=== PATIENT | male | born 1970 | race Hispanic/Latino ===

== ENCOUNTER 2019-12-21 14:58 | Emergency (ER) | payer SELFPAY ==
[2019-12-21 15:10] VITALS: BP 135/88
--- NOTE | 2019-12-21 16:10 | Emergency Department Report ---
ED Seizure HPI - General Chief Complaint: Seizure Stated Complaint: SEIZURE Time Seen by Provider: 12/21/19 15:56 Source: patient, EMS Mode of arrival: Stretcher Limitations: No Limitations - History of Present Illness Initial Comments: Patient is a 49-year-old male who is presenting status post seizure. There was a delay with seeing the patient on his arrival secondary to performing a procedure on another patient. When I was able to see the patient the patient was no longer postictal. Patient states he does not want to stay in the [facility] department and that he believes his seizure was secondary to alcohol withdrawal. Patient's last alcohol use was 6 days ago. Patient states "it and keep me long enough at [facility]" patient is adamant that he does not want to seek treatment in the emergency department at this time and he is fine and wants to leave. - Related Data Allergies Allergy/AdvReac Type Severity Reaction Status Date / Time No Known Allergies Allergy Unverified 12/21/19 15:10 ED Review of Systems ROS: Stated complaint: SEIZURE Other details as noted in HPI Comment: All other systems reviewed and negative ED Past Medical Hx - Past Medical History Previous Medical History?: Yes Hx Seizures: Yes - Surgical History Past Surgical History?: No - Social History Smoking Status: Current Every Day Smoker Substance Use Type: None ED Physical Exam - General Limitations: No Limitations General appearance: alert, in no apparent distress - Eye Eye exam: Present: normal appearance - Neck Neck exam: Absent: meningismus - Respiratory Respiratory exam: Absent: respiratory distress ED Course Vital Signs 12/21/19 15:07 Temperature 98.8 F Pulse Rate 111 H Respiratory 18 Rate Blood Pressure 135/88 O2 Sat by Pulse 97 Oximetry ED Medical Decision Making - Medical Decision Making Patient states he would like to leave the hospital and does not want to be treated. Did explain that alcohol withdrawal can be serious and sometimes deadly and the patient states that he feels fine and would like to sign out AGAINST MEDICAL ADVICE. He is a and O x3. Patient is no longer postictal. Patient will be discharged AGAINST MEDICAL ADVICE. Critical care attestation.: If time is entered above; I have spent that time in minutes in the direct care of this critically ill patient, excluding procedure time. ED Disposition Clinical Impression: Alcohol withdrawal seizure Disposition: DC-07 LEFT AGAINST MED ADVICE Is pt being admited?: No Does the pt Need Aspirin: No Condition: Stable Time of Disposition: 16:11
== END 2019-12-21 15:57 | disposition left against medical advice (07) ==
LOC: ED 14:58
DX: G40.909 Epilepsy, unspecified, not intractable, without status epilepticus (principal); F10.239 Alcohol dependence with withdrawal, unspecified; F17.200 Nicotine dependence, unspecified, uncomplicated
CPT/HCPCS: 99283